=== PATIENT | female | born 1955 | race African-American/Black ===

== ENCOUNTER 2017-10-01 22:52 | Inpatient (IN) | payer MEDICARE, MEDICAID ==
[~2017-10-01] VITALS: Ht 188 cm; Wt 104.3 kg
[~2017-10-01 22:52] MED LIST: AMLODIPINE PO; ATENOLOL; FLUT1DIS3 IH; GABA-531 PO; HYDR-519 PO; MECL-109 PO; MESA1.2T2 PO; METF25CR; PROAIR HFA AER
[2017-10-02] MEDS ORDERED: MECLIZINE 25MG TABLET PO PRN (00:30)
[2017-10-02] MEDS ORDERED: PROMETHAZINE/DEXTROMETHORPHAN 6.25-15MG/5ML BOTTLE 120ML PO PRN (00:30)
[2017-10-02] MEDS ORDERED: ONDANSETRON HCL 4MG/2ML VIAL IV PRN (00:30)
[2017-10-02] MEDS ORDERED: CLONIDINE 0.1MG TABLET PO PRN (00:30)
[2017-10-02] MEDS ORDERED: IPRATROPIUM/ALBUTEROL 0.5-3(2.5)MG/3ML NEB HHN PRN (00:30)
[2017-10-02] MEDS ORDERED: HYDROCODONE/ACETAMINOPHEN 10/325MG TABLET PO PRN (00:30)
[2017-10-02] MEDS ORDERED: DEXTROSE 50% WATER 50ML SYRINGE IV PRN (00:30)
[2017-10-02] MEDS ORDERED: CLONIDINE 0.2MG TABLET PO PRN (00:30)
[2017-10-02 01:08] VITALS: BP 139/78
[2017-10-02] MEDS ORDERED: AZITHROMYCIN 500 MG in DEXT 5% WATER 250 ML IV SCH ×2 (02:00→17:00)
[2017-10-02] MEDS: IPRATROPIUM/ALBUTEROL 0.5-3(2.5)MG/3ML NEB HHN SCH ×5 (04:05→20:58)
[2017-10-02 06:31] LABS: BASOPHILS % 0.5 % (0.0-2.0); EOSINOPHILS % 0.1 % (0.0-5.0); LYMPHOCYTES % 23.6 % (20.0-50.0); MEAN CORPUSCULAR HEMOGLOBIN 26.8 pg (28.0-32.0); MEAN CORPUSCULAR VOLUME 82.9 fL (81.0-99.0); MONOCYTES % 8.6 % (2.0-8.0); NEUTROPHILS % 67.2 % (40.0-76.0); PLATELET 220 x1000/uL (130-400); RED BLOOD CELL COUNT 4.47 mill/uL (4.2-5.4); RED CELL DISTRIBUTION WIDTH 13.3 % (11.6-14.6)
[2017-10-02] MEDS: BLOOD SUGAR DIAGNOSTIC STRIP TEST SCH ×4 (06:58→21:55)
[2017-10-02] MEDS: OMEPRAZOLE 20MG CAPSULE EXTENDED RELEASE PO SCH (06:58)
[2017-10-02] MEDS: INSULIN LISPRO 100 UNITS/ML SUBCUT SCH ×4 (07:46→21:55)
[2017-10-02 08:00] VITALS: BP 150/83
[2017-10-02 08:36] LABS: CARBON DIOXIDE 28 mEq/L (21-32); CHLORIDE 103 mEq/L (98-107)
[2017-10-02] MEDS: ENOXAPARIN 40MG/0.4ML SYR SUBCUT SCH (09:00)
[2017-10-02] MEDS ORDERED: METHYLPREDNISOLONE SOD SUCC 40 MG/ML VIAL IV SCH (09:00)
[2017-10-02] MEDS: ASPIRIN 81MG TABLET PO SCH (09:52)
[2017-10-02] MEDS: ATENOLOL 50 MG TABLET PO SCH (09:53)
[2017-10-02] MEDS: GUAIFENESIN 600MG ER TABLET PO SCH ×2 (09:53→21:40)
[2017-10-02] MEDS: AMLODIPINE 5MG TABLET PO SCH (09:54)
[2017-10-02] MEDS: BUDESONIDE 0.5MG/2ML NEB HHN SCH ×2 (10:39→20:57)
[2017-10-02 10:43] LABS: PREALBUMIN 23.6 mg/dL (20.0-40.0)
[2017-10-02] MEDS: INSULIN DETEMIR UD 100 UNITS/ML SYR SUBCUT SCH (11:10)
[2017-10-02] MEDS: PREDNISONE 20MG TABLET PO SCH (12:22)
[2017-10-02] MEDS: AZITHROMYCIN 500 MG TABLET PO SCH (18:48)
[2017-10-02 20:00] VITALS: BP 123/72
[2017-10-02 20:26] LABS: CLARITY URINE CLEAR (CLEAR); COLOR URINE YELLOW (YELLOW); GLUCOSE URINE 3+ (NEGATIVE); KETONES URINE NEGATIVE (NEGATIVE); LEUKOCYTE ESTERASE URINE NEGATIVE (NEGATIVE); NITRITE URINE NEGATIVE (NEGATIVE); OCCULT BLOOD URINE NEGATIVE (NEGATIVE); PH URINE 5.5 (4.5-8.0); PROTEIN URINE NEGATIVE (NEGATIVE); SPECIFIC GRAVITY URINE 1.018 (1.005-1.030); UROBILINOGEN URINE 0.2 E.U./dL (0.2-1.0)
[2017-10-02] MEDS: GABAPENTIN 300MG CAPSULE PO SCH (21:40)
[2017-10-03] MEDS: IPRATROPIUM/ALBUTEROL 0.5-3(2.5)MG/3ML NEB HHN SCH ×6 (04:00→21:20)
[2017-10-03] MEDS: BLOOD SUGAR DIAGNOSTIC STRIP TEST SCH ×4 (07:03→21:19)
[2017-10-03] MEDS: OMEPRAZOLE 20MG CAPSULE EXTENDED RELEASE PO SCH (07:04)
[2017-10-03] MEDS: INSULIN LISPRO 100 UNITS/ML SUBCUT SCH ×4 (07:09→21:19)
[2017-10-03 08:00] VITALS: BP 148/86
[2017-10-03] MEDS: BUDESONIDE 0.5MG/2ML NEB HHN SCH ×2 (08:52→21:21)
[2017-10-03] MEDS: ENOXAPARIN 40MG/0.4ML SYR SUBCUT SCH (09:00)
[2017-10-03] MEDS: ATENOLOL 50 MG TABLET PO SCH (09:49)
[2017-10-03] MEDS: AZITHROMYCIN 500 MG TABLET PO SCH (09:49)
[2017-10-03] MEDS: ASPIRIN 81MG TABLET PO SCH (09:50)
[2017-10-03] MEDS: PREDNISONE 20MG TABLET PO SCH (09:50)
[2017-10-03] MEDS: AMLODIPINE 5MG TABLET PO SCH (09:50)
[2017-10-03] MEDS: GUAIFENESIN 600MG ER TABLET PO SCH ×2 (09:50→21:13)
[2017-10-03] MEDS: INSULIN DETEMIR UD 100 UNITS/ML SYR SUBCUT SCH (11:21)
[2017-10-03 20:00] VITALS: BP 150/83
[2017-10-03] MEDS: GABAPENTIN 300MG CAPSULE PO SCH (21:13)
[2017-10-04] MEDS: IPRATROPIUM/ALBUTEROL 0.5-3(2.5)MG/3ML NEB HHN SCH ×5 (04:17→20:07)
[2017-10-04] MEDS: BLOOD SUGAR DIAGNOSTIC STRIP TEST SCH ×4 (05:34→21:55)
[2017-10-04 06:53] LABS: BASOPHILS % 0.5 % (0.0-2.0); EOSINOPHILS % 0.4 % (0.0-5.0); HEMATOCRIT. 38.1 % (36.0-48.0); HEMOGLOBIN. 12.5 g/dL (12.0-16.0); LYMPHOCYTES % 23.5 % (20.0-50.0); MEAN CORPUSCULAR HEMOGLOBIN 27.3 pg (28.0-32.0); MEAN PLATELET VOLUME 10.6 fl (7.4-10.4); MONOCYTES % 7.9 % (2.0-8.0); NEUTROPHILS % 67.7 % (40.0-76.0); PLATELET 232 x1000/uL (130-400); RED BLOOD CELL COUNT 4.59 mill/uL (4.2-5.4); RED CELL DISTRIBUTION WIDTH 13.3 % (11.6-14.6)
[2017-10-04] MEDS: BUDESONIDE 0.5MG/2ML NEB HHN SCH ×2 (07:50→20:07)
[2017-10-04 08:00] VITALS: BP 164/86
[2017-10-04] MEDS: INSULIN LISPRO 100 UNITS/ML SUBCUT SCH ×4 (09:00→21:55)
[2017-10-04] MEDS: ENOXAPARIN 40MG/0.4ML SYR SUBCUT SCH ×2 (09:00→09:09)
[2017-10-04] MEDS: GUAIFENESIN 600MG ER TABLET PO SCH ×2 (09:05→21:48)
[2017-10-04] MEDS: AZITHROMYCIN 500 MG TABLET PO SCH (09:05)
[2017-10-04] MEDS: AMLODIPINE 5MG TABLET PO SCH (09:06)
[2017-10-04] MEDS: PREDNISONE 20MG TABLET PO SCH (09:07)
[2017-10-04] MEDS: ASPIRIN 81MG TABLET PO SCH (09:07)
[2017-10-04] MEDS: FAMOTIDINE 20MG TABLET PO SCH ×2 (09:08→17:30)
[2017-10-04] MEDS: INSULIN DETEMIR UD 100 UNITS/ML SYR SUBCUT SCH (09:16)
[2017-10-04] MEDS: ATENOLOL 50 MG TABLET PO SCH (09:22)
[2017-10-04] MEDS ORDERED: GUAIFENESIN/CODEINE 100-10MG/5ML UDC PO PRN (11:15)
[2017-10-04] MEDS ORDERED: GUAIFENESIN/CODEINE 200-20MG/10ML UDC PO PRN (11:31)
[2017-10-04] MEDS: LEVOFLOXACIN 250MG TABLET PO SCH (11:52)
[2017-10-04 12:38] LABS: CARBON DIOXIDE 27 mEq/L (21-32); CHLORIDE 104 mEq/L (98-107); HDL CHOLESTEROL 74 mg/dL (40-59); LDL CHOLESTEROL 71 mg/dL (5-100); PHOSPHORUS 3.5 mg/dL (2.5-4.9); TOTAL IRON BINDING CAPACITY 325 ug/dL (250-450)
[2017-10-04 18:35] LABS: FOLIC ACID (FOLATE) SERUM 13.4 ng/mL (>5.38)
[2017-10-04 20:00] VITALS: BP 130/78
[2017-10-04] MEDS: GABAPENTIN 300MG CAPSULE PO SCH (21:48)
[2017-10-05] MEDS: IPRATROPIUM/ALBUTEROL 0.5-3(2.5)MG/3ML NEB HHN SCH ×6 (00:25→20:43)
[2017-10-05] MEDS: LORAZEPAM 0.5MG TABLET PO PRN ×2 (00:46→20:58)
[2017-10-05] MEDS: BLOOD SUGAR DIAGNOSTIC STRIP TEST SCH ×4 (06:00→21:48)
[2017-10-05 06:57] LABS: BASOPHILS % 0.4 % (0.0-2.0); EOSINOPHILS % 0.2 % (0.0-5.0); HEMATOCRIT. 38.9 % (36.0-48.0); HEMOGLOBIN. 12.4 g/dL (12.0-16.0); LYMPHOCYTES % 21.5 % (20.0-50.0); MEAN CORPUSCULAR HEMOGLOBIN 26.6 pg (28.0-32.0); MEAN CORPUSCULAR VOLUME 83.1 fL (81.0-99.0); MEAN PLATELET VOLUME 10.3 fl (7.4-10.4); MONOCYTES % 8.4 % (2.0-8.0); NEUTROPHILS % 69.5 % (40.0-76.0); PLATELET 255 x1000/uL (130-400); RED BLOOD CELL COUNT 4.68 mill/uL (4.2-5.4); RED CELL DISTRIBUTION WIDTH 13.3 % (11.6-14.6)
[2017-10-05 08:00] VITALS: BP 142/79
[2017-10-05 08:11] LABS: CARBON DIOXIDE 27 mEq/L (21-32); CHLORIDE 104 mEq/L (98-107); T4 FREE 0.83 ng/dL (0.76-1.46)
[2017-10-05] MEDS: ASPIRIN 81MG TABLET PO SCH (08:31)
[2017-10-05] MEDS: FAMOTIDINE 20MG TABLET PO SCH ×2 (08:31→17:28)
[2017-10-05] MEDS: GUAIFENESIN 600MG ER TABLET PO SCH ×2 (08:31→21:47)
[2017-10-05] MEDS: AMLODIPINE 5MG TABLET PO SCH ×2 (08:33→21:48)
[2017-10-05] MEDS: ATENOLOL 50 MG TABLET PO SCH (08:33)
[2017-10-05] MEDS: ENOXAPARIN 40MG/0.4ML SYR SUBCUT SCH (08:39)
[2017-10-05] MEDS: INSULIN LISPRO 100 UNITS/ML SUBCUT SCH ×4 (08:39→21:57)
[2017-10-05] MEDS ORDERED: PREDNISONE 5MG TABLET PO SCH (09:00)
[2017-10-05] MEDS: INSULIN DETEMIR UD 100 UNITS/ML SYR SUBCUT SCH (10:26)
[2017-10-05 20:00] VITALS: BP 142/79
[2017-10-05] MEDS: GABAPENTIN 300MG CAPSULE PO SCH (21:47)
[2017-10-06] MEDS: IPRATROPIUM/ALBUTEROL 0.5-3(2.5)MG/3ML NEB HHN SCH ×6 (00:38→21:04)
[2017-10-06] MEDS: BLOOD SUGAR DIAGNOSTIC STRIP TEST SCH ×4 (06:30→20:43)
[2017-10-06] MEDS: INSULIN LISPRO 100 UNITS/ML SUBCUT SCH ×4 (07:37→20:51)
[2017-10-06 07:57] VITALS: BP 132/80
[2017-10-06] MEDS: LEVOFLOXACIN 250MG TABLET PO SCH (08:56)
[2017-10-06] MEDS: ASPIRIN 81MG TABLET PO SCH (08:56)
[2017-10-06] MEDS: FAMOTIDINE 20MG TABLET PO SCH ×2 (08:56→17:27)
[2017-10-06] MEDS: GUAIFENESIN 600MG ER TABLET PO SCH ×2 (08:56→20:35)
[2017-10-06] MEDS: ATENOLOL 50 MG TABLET PO SCH (08:57)
[2017-10-06] MEDS: ENOXAPARIN 40MG/0.4ML SYR SUBCUT SCH (08:57)
[2017-10-06] MEDS: AMLODIPINE 5MG TABLET PO SCH ×2 (08:58→20:36)
[2017-10-06] MEDS: INSULIN DETEMIR UD 100 UNITS/ML SYR SUBCUT SCH (11:23)
[2017-10-06] MEDS ORDERED: LORAZEPAM 0.5MG TABLET PO PRN (13:15)
[2017-10-06] MEDS ORDERED: HYDROCODONE/ACETAMINOPHEN 10/325MG TABLET PO PRN (16:30)
[2017-10-06 20:00] VITALS: BP 114/65
[2017-10-06] MEDS: GUAIFENESIN/CODEINE 200-20MG/10ML UDC PO PRN (20:35)
[2017-10-06] MEDS: GABAPENTIN 300MG CAPSULE PO SCH (20:35)
[2017-10-07] MEDS: IPRATROPIUM/ALBUTEROL 0.5-3(2.5)MG/3ML NEB HHN SCH ×3 (01:02→07:55)
[2017-10-07] MEDS: BLOOD SUGAR DIAGNOSTIC STRIP TEST SCH ×2 (06:30→11:15)
[2017-10-07 07:00] VITALS: BP 143/83
[2017-10-07 07:11] LABS: BASOPHILS % 0.5 % (0.0-2.0); EOSINOPHILS % 1.1 % (0.0-5.0); HEMATOCRIT. 38.1 % (36.0-48.0); HEMOGLOBIN. 12.2 g/dL (12.0-16.0); LYMPHOCYTES % 33.8 % (20.0-50.0); MEAN CORPUSCULAR HEMOGLOBIN 26.6 pg (28.0-32.0); MEAN CORPUSCULAR VOLUME 83.3 fL (81.0-99.0); MEAN PLATELET VOLUME 10.2 fl (7.4-10.4); MONOCYTES % 8.2 % (2.0-8.0); NEUTROPHILS % 56.4 % (40.0-76.0); PLATELET 238 x1000/uL (130-400); RED BLOOD CELL COUNT 4.57 mill/uL (4.2-5.4); RED CELL DISTRIBUTION WIDTH 13.4 % (11.6-14.6)
[2017-10-07 08:14] LABS: CARBON DIOXIDE 28 mEq/L (21-32); CHLORIDE 105 mEq/L (98-107)
[2017-10-07] MEDS: GUAIFENESIN 600MG ER TABLET PO SCH (08:29)
[2017-10-07] MEDS: ASPIRIN 81MG TABLET PO SCH (08:29)
[2017-10-07] MEDS: FAMOTIDINE 20MG TABLET PO SCH (08:29)
[2017-10-07] MEDS: ATENOLOL 50 MG TABLET PO SCH (08:30)
[2017-10-07] MEDS: AMLODIPINE 5MG TABLET PO SCH (08:30)
[2017-10-07] MEDS: ENOXAPARIN 40MG/0.4ML SYR SUBCUT SCH (08:31)
[2017-10-07] MEDS: INSULIN LISPRO 100 UNITS/ML SUBCUT SCH ×2 (08:32→13:00)
[2017-10-07] MEDS: GUAIFENESIN/CODEINE 200-20MG/10ML UDC PO PRN (08:53)
[2017-10-07] MEDS: INSULIN DETEMIR UD 100 UNITS/ML SYR SUBCUT SCH (10:00)
[2017-10-07 11:37] VITALS: BP 136/82
[2017-10-08 13:27] LABS: 25-HYDROXY VITAMIN D3 24 ng/mL (.)
== END 2017-10-07 14:10 | disposition home health service (06) | DRG 190 ==
LOC: EDUNIT# 22:52
PROVIDERS: ADMIT Physical Medicine & Rehabilitation Spinal Cord Injury Medicine; ATTEND Family Medicine Adult Medicine
DX: J44.1 Chronic obstructive pulmonary disease with (acute) exacerbation (principal); J96.00 Acute respiratory failure, unspecified whether with hypoxia or hypercapnia; J45.901 Unspecified asthma with (acute) exacerbation; F33.1 Major depressive disorder, recurrent, moderate; E87.2 Acidosis; M48.02 Spinal stenosis, cervical region; E11.9 Type 2 diabetes mellitus without complications; D64.9 Anemia, unspecified; E78.5 Hyperlipidemia, unspecified; G89.4 Chronic pain syndrome; J44.0 Chronic obstructive pulmonary disease with (acute) lower respiratory infection; M48.061 Spinal stenosis, lumbar region without neurogenic claudication; R00.0 Tachycardia, unspecified; I10 Essential (primary) hypertension; R26.9 Unspecified abnormalities of gait and mobility; J20.9 Acute bronchitis, unspecified; R07.89 Other chest pain; R53.81 Other malaise; B95.1 Streptococcus, group B, as the cause of diseases classified elsewhere; T38.0X5A Adverse effect of glucocorticoids and synthetic analogues, initial encounter; D72.829 Elevated white blood cell count, unspecified; Z82.49 Family history of ischemic heart disease and other diseases of the circulatory system; Z86.19 Personal history of other infectious and parasitic diseases; Y92.89 Other specified places as the place of occurrence of the external cause
CPT/HCPCS: 36415; 80048; 80053; 80061; 81001; 82306; 82607; 82728; 82746; 82962; 83036; 83540; 83550; 83735; 84100; 84134; 84439; 84443; 84481; 84630; 85025; 87086; 93970; 94640; 97110; 97112; 97116; 97162; 97166; 97530; 97535; J0456; J1650; J1815; J7060; J7512; J7620; J7626

== ENCOUNTER 2017-12-26 23:15 | Emergency (ER) | payer MEDICARE, MEDICAID ==
[~2017-12-26] VITALS: Ht 188 cm; Wt 107.0 kg
[~2017-12-26 23:15] MED LIST changes: -METF25CR; -PROAIR HFA AER
[2017-12-27] MEDS ORDERED: MORPHINE SULFATE 4 MG/ML CPJ (NOT FOR IM USE) IV ONE (00:15)
[2017-12-27] MEDS ORDERED: ONDANSETRON HCL 4MG/2ML VIAL IV ONE (00:15)
[2017-12-27 00:31] LABS: BASOPHILS % 1.3 % (0.0-2.0); EOSINOPHILS % 1.6 % (0.0-5.0); HEMATOCRIT. 37.7 % (36.0-48.0); LYMPHOCYTES % 40.7 % (20.0-50.0); MEAN CORPUSCULAR HEMOGLOBIN 26.2 pg (28.0-32.0); MEAN CORPUSCULAR VOLUME 82.1 fL (81.0-99.0); MEAN PLATELET VOLUME 10.2 fl (7.4-10.4); MONOCYTES % 11.4 % (2.0-8.0); PLATELET 241 x1000/uL (130-400)
[2017-12-27] MEDS ORDERED: HYDROCODONE/ACETAMINOPHEN 10/325MG TABLET PO ONE (00:45)
[2017-12-27 00:46] LABS: CHLORIDE 107 mEq/L (98-107); TROPONIN I < 0.02 ng/mL (0.00-0.04)
[2017-12-27 02:00] VITALS: BP 143/78
== END 2017-12-27 02:30 | disposition home or self-care (01) ==
LOC: ER 23:15
DX: J20.9 Acute bronchitis, unspecified (principal); R07.9 Chest pain, unspecified; J44.9 Chronic obstructive pulmonary disease, unspecified; E11.9 Type 2 diabetes mellitus without complications; I10 Essential (primary) hypertension; Z88.0 Allergy status to penicillin; Z87.11 Personal history of peptic ulcer disease
CPT/HCPCS: 36415; 71045; 80053; 83880; 84484; 85025; 85379; 93005; 99285

== ENCOUNTER 2018-07-04 23:44 | Inpatient (IN) | payer MEDICARE, MEDICAID ==
[~2018-07-04] VITALS: Ht 188 cm; Wt 104.3 kg
[~2018-07-04 23:44] MED LIST changes: -AMLODIPINE PO
[2018-07-05] VITALS (8 sets, daily range): BP systolic 142–184; BP diastolic 68–92
[2018-07-05] MEDS ORDERED: IPRATROPIUM BROMIDE (0.02%) 0.5MG/2.5ML NEB HHN STA (00:42)
[2018-07-05] MEDS ORDERED: METHYLPREDNISOLONE SOD SUCC 125 MG/2 ML VIAL IV STA (00:42)
[2018-07-05] MEDS ORDERED: ASPIRIN 81MG TABLET PO ONE (00:45)
[2018-07-05] MEDS ORDERED: ASPIRIN 81MG EC TABLET PO ONE (00:45)
[2018-07-05] MEDS: ALBUTEROL (0.083%) 2.5MG/3ML NEB HHN SCH ×2 (01:00→02:15)
[2018-07-05] MEDS ORDERED: IPRATROPIUM/ALBUTEROL 0.5-3(2.5)MG/3ML NEB ONE (01:02)
[2018-07-05 01:03] LABS: BASOPHILS % 0.2 % (0.0-2.0); EOSINOPHILS % 0.9 % (0.0-5.0); HEMATOCRIT. 38.1 % (36.0-48.0); HEMOGLOBIN. 12.2 g/dL (12.0-16.0); MEAN CORPUSCULAR HEMOGLOBIN 26.7 pg (28.0-32.0); MEAN CORPUSCULAR VOLUME 83.2 fL (81.0-99.0); MEAN PLATELET VOLUME 10.3 fl (7.4-10.4); MONOCYTES % 10.9 % (2.0-8.0); PLATELET 223 x1000/uL (130-400); RED BLOOD CELL COUNT 4.58 mill/uL (4.2-5.4); RED CELL DISTRIBUTION WIDTH 13.3 % (11.6-14.6)
[2018-07-05 01:10] LABS: CHLORIDE 107 mEq/L (98-107)
[2018-07-05 01:13] LABS: PARTIAL THROMBOPLASTIN TIME 26.8 sec (23.4-31.0); PROTHROMBIN TIME 10.5 sec (9.1-11.1)
[2018-07-05] MEDS ORDERED: LACTATED RINGERS 1,000 ML IV SCH (04:00)
[2018-07-05] MEDS ORDERED: CLONIDINE 0.1MG TABLET PO PRN (04:00)
[2018-07-05] MEDS ORDERED: HYDROCODONE/ACETAMINOPHEN 5/325MG TABLET PO PRN (04:00)
[2018-07-05] MEDS ORDERED: LORAZEPAM 0.5MG TABLET PO PRN (04:00)
[2018-07-05] MEDS ORDERED: ACETAMINOPHEN 325MG TABLET PO PRN (04:00)
[2018-07-05] MEDS ORDERED: MAGNESIUM/ALUMINUM HYDROXIDE/SIMETHICONE 30ML UDC PO PRN (04:00)
[2018-07-05] MEDS ORDERED: DIPHENHYDRAMINE 50MG/ML VIAL IV PRN (04:00)
[2018-07-05] MEDS ORDERED: GUAIFENESIN 200MG/10ML SUGAR FREE UDC PO PRN (04:00)
[2018-07-05] MEDS ORDERED: IPRATROPIUM/ALBUTEROL 0.5-3(2.5)MG/3ML NEB INH PRN (04:00)
[2018-07-05] MEDS ORDERED: DOCUSATE SODIUM 100MG CAPSULE PO PRN (04:00)
[2018-07-05] MEDS ORDERED: ONDANSETRON HCL 4MG/2ML VIAL IV PRN (04:00)
[2018-07-05] MEDS ORDERED: HYDROCODONE/APAP 7.5/325MG 1 TAB TABLET PO PRN (04:00)
[2018-07-05 04:58] LABS: CLARITY URINE CLEAR (CLEAR); COLOR URINE YELLOW (YELLOW); KETONES URINE TRACE (NEGATIVE); LEUKOCYTE ESTERASE URINE NEGATIVE (NEGATIVE); NITRITE URINE NEGATIVE (NEGATIVE); OCCULT BLOOD URINE NEGATIVE (NEGATIVE); PH URINE 5.5 (4.5-8.0); PROTEIN URINE NEGATIVE (NEGATIVE); SPECIFIC GRAVITY URINE 1.015 (1.005-1.030); UROBILINOGEN URINE 0.2 E.U./dL (0.2-1.0)
[2018-07-05 05:18] LABS: *AMPHETAMINES SCREEN URINE NEGATIVE (NEGATIVE); *BARBITURATES SCREEN URINE NEGATIVE (NEGATIVE); *BENZODIAZEPINES SCREEN URINE NEGATIVE (NEGATIVE); *COCAINE SCREEN URINE NEGATIVE (NEGATIVE); METHADONE URINE SCREEN NEGATIVE (NEGATIVE); OPIATES URINE SCREEN NEGATIVE (NEGATIVE)
[2018-07-05 05:19] LABS: CANNABINOID URINE SCREEN NEGATIVE (NEGATIVE); PHENCYCLIDINE URINE SCREEN NEGATIVE (NEGATIVE)
[2018-07-05 06:43] LABS: HEMATOCRIT. 41.5 % (36.0-48.0); HEMOGLOBIN. 13.3 g/dL (12.0-16.0); MEAN CORPUSCULAR HEMOGLOBIN 26.9 pg (28.0-32.0); MEAN PLATELET VOLUME 10.6 fl (7.4-10.4); PLATELET 232 x1000/uL (130-400); RED BLOOD CELL COUNT 4.95 mill/uL (4.2-5.4); RED CELL DISTRIBUTION WIDTH 13.3 % (11.6-14.6)
[2018-07-05 06:45] LABS: CHLORIDE 106 mEq/L (98-107)
[2018-07-05 06:51] LABS: PHOSPHORUS 2.2 mg/dL (2.5-4.9)
[2018-07-05 06:52] LABS: LDL CHOLESTEROL 85 mg/dL (5-100)
[2018-07-05 06:53] LABS: HDL CHOLESTEROL 56 mg/dL (40-59)
[2018-07-05] MEDS ORDERED: DEXTROSE 50% WATER 50ML SYRINGE IV PRN (08:45)
[2018-07-05] MEDS: BLOOD SUGAR DIAGNOSTIC STRIP TEST SCH ×4 (08:52→20:41)
[2018-07-05] MEDS: ENOXAPARIN 40MG/0.4ML SYR SUBCUT SCH ×2 (09:00→10:03)
[2018-07-05 09:41] LABS: PLATELET ESTIMATE NORMAL
[2018-07-05] MEDS ORDERED: METF500T6 PO (10:26)
[2018-07-05] MEDS ORDERED: AMLO10TA80 PO (10:26)
[2018-07-05] MEDS: INSULIN LISPRO 100 UNITS/ML SUBCUT SCH ×4 (10:38→20:40)
[2018-07-05] MEDS ORDERED: INSULIN LISPRO 100 UNITS/ML SUBCUT SCH (13:10)
[2018-07-05] MEDS ORDERED: TRAMADOL 50MG TABLET PO PRN (14:00)
[2018-07-05] MEDS: AMLODIPINE 5MG TABLET PO SCH ×2 (14:01→20:31)
[2018-07-05] MEDS: MECLIZINE 25MG TABLET PO PRN (16:12)
[2018-07-05] MEDS ORDERED: VENLAFAXINE HCL 37.5MG TABLET PO SCH (16:30)
[2018-07-05] MEDS: IPRATROPIUM/ALBUTEROL 0.5-3(2.5)MG/3ML NEB HHN SCH ×2 (17:19→19:53)
[2018-07-05] MEDS: BUDESONIDE 0.5MG/2ML NEB HHN SCH ×2 (17:19→19:53)
[2018-07-05] MEDS: VENLAFAXINE HCL 37.5MG SR CAPSULE 24HR PO SCH (18:47)
[2018-07-05] MEDS: ATENOLOL 50 MG TABLET PO SCH (20:33)
[2018-07-06] VITALS (7 sets, daily range): BP systolic 115–177; BP diastolic 62–80
[2018-07-06] MEDS: IPRATROPIUM/ALBUTEROL 0.5-3(2.5)MG/3ML NEB HHN SCH ×4 (01:45→20:13)
[2018-07-06] MEDS: OMEPRAZOLE 20MG CAPSULE EXTENDED RELEASE PO SCH (05:38)
[2018-07-06] MEDS: BLOOD SUGAR DIAGNOSTIC STRIP TEST SCH ×4 (05:38→21:31)
[2018-07-06] MEDS: INSULIN LISPRO 100 UNITS/ML SUBCUT SCH ×4 (05:39→21:46)
[2018-07-06] MEDS: ENOXAPARIN 40MG/0.4ML SYR SUBCUT SCH (09:00)
[2018-07-06] MEDS: AMLODIPINE 5MG TABLET PO SCH (09:01)
[2018-07-06] MEDS: ATENOLOL 50 MG TABLET PO SCH (09:01)
[2018-07-06] MEDS: VENLAFAXINE HCL 37.5MG SR CAPSULE 24HR PO SCH (09:02)
[2018-07-06] MEDS ORDERED: BENZONATATE 100MG CAPSULE PO PRN (09:30)
[2018-07-06] MEDS: BUDESONIDE 0.5MG/2ML NEB HHN SCH ×2 (09:33→20:14)
[2018-07-06 09:53] LABS: BASOPHILS % 0.4 % (0.0-2.0); HEMATOCRIT. 38.6 % (36.0-48.0); HEMOGLOBIN. 12.4 g/dL (12.0-16.0); LYMPHOCYTES % 17.6 % (20.0-50.0); MEAN CORPUSCULAR HEMOGLOBIN 26.7 pg (28.0-32.0); MEAN CORPUSCULAR VOLUME 83.6 fL (81.0-99.0); MEAN PLATELET VOLUME 11.2 fl (7.4-10.4); MONOCYTES % 6.6 % (2.0-8.0); NEUTROPHILS % 75.4 % (40.0-76.0); PLATELET 238 x1000/uL (130-400); RED BLOOD CELL COUNT 4.62 mill/uL (4.2-5.4); RED CELL DISTRIBUTION WIDTH 13.4 % (11.6-14.6)
[2018-07-06] MEDS ORDERED: LEVOFLOXACIN 500MG PREMIX 100 ML IV SCH (10:00)
[2018-07-06 10:05] LABS: CHLORIDE 106 mEq/L (98-107)
[2018-07-06] MEDS: MECLIZINE 25MG TABLET PO PRN (11:25)
[2018-07-06] MEDS: NIFEDIPINE XL 60MG TAB PO SCH ×2 (12:57→18:21)
[2018-07-06] MEDS: GUAIFENESIN 600MG ER TABLET PO SCH (21:35)
[2018-07-06] MEDS: ATENOLOL 25MG TABLET PO SCH (21:35)
[2018-07-06] MEDS: ENOXAPARIN 30MG/0.3ML SYR SUBCUT SCH (21:36)
[2018-07-07] MEDS: IPRATROPIUM/ALBUTEROL 0.5-3(2.5)MG/3ML NEB HHN SCH ×3 (01:24→15:00)
[2018-07-07 02:00] VITALS: BP 140/75
[2018-07-07 04:00] VITALS: BP 145/70
[2018-07-07] MEDS: BLOOD SUGAR DIAGNOSTIC STRIP TEST SCH ×2 (07:40→12:07)
[2018-07-07 07:42] LABS: BASOPHILS % 0.5 % (0.0-2.0); EOSINOPHILS % 0.4 % (0.0-5.0); HEMOGLOBIN. 12.5 g/dL (12.0-16.0); MEAN CORPUSCULAR HEMOGLOBIN 26.9 pg (28.0-32.0); MEAN CORPUSCULAR VOLUME 84.5 fL (81.0-99.0); MEAN PLATELET VOLUME 10.8 fl (7.4-10.4); MONOCYTES % 7.8 % (2.0-8.0); NEUTROPHILS % 54.3 % (40.0-76.0); PLATELET 233 x1000/uL (130-400); RED BLOOD CELL COUNT 4.62 mill/uL (4.2-5.4); RED CELL DISTRIBUTION WIDTH 13.5 % (11.6-14.6)
[2018-07-07 08:00] VITALS: BP_SYST 110; BP_SYST 117; BP_SYST 131; BP_DIAS 63; BP_DIAS 68; BP_DIAS 71
[2018-07-07] MEDS: INSULIN LISPRO 100 UNITS/ML SUBCUT SCH ×2 (08:10→13:10)
[2018-07-07] MEDS: BUDESONIDE 0.5MG/2ML NEB HHN SCH (08:10)
[2018-07-07 08:13] LABS: CHLORIDE 107 mEq/L (98-107)
[2018-07-07] MEDS: OMEPRAZOLE 20MG CAPSULE EXTENDED RELEASE PO SCH (08:52)
[2018-07-07] MEDS: GUAIFENESIN 600MG ER TABLET PO SCH (08:52)
[2018-07-07] MEDS: VENLAFAXINE HCL 37.5MG SR CAPSULE 24HR PO SCH (08:52)
[2018-07-07] MEDS: NIFEDIPINE XL 60MG TAB PO SCH (08:53)
[2018-07-07] MEDS: ATENOLOL 25MG TABLET PO SCH (08:54)
[2018-07-07] MEDS: ENOXAPARIN 30MG/0.3ML SYR SUBCUT SCH (08:55)
[2018-07-07] MEDS ORDERED: LEVOFLOXACIN 750MG PREMIX 150 ML IV SCH (09:00)
[2018-07-07] MEDS ORDERED: LOSARTAN POTASSIUM 25 MG TABLET PO SCH (09:00)
[2018-07-07 12:00] VITALS: BP 105/66
[2018-07-07 16:23] VITALS: BP 117/69
[2018-07-07 16:28] VITALS: BP 117/69
[2018-07-08] MEDS ORDERED: FAMOTIDINE 20MG TABLET PO SCH (09:00)
== END 2018-07-07 18:55 | disposition home or self-care (01) | DRG 73 ==
LOC: ER 23:44 → SUPCPDRO 07-05 03:37 → 7WST 07-05 03:53 → EDBEDREQ 07-05 04:15 → EDBEDREQTM 07-05 04:15 → ENRESERV 07-05 06:53
PROVIDERS: ADMIT Family Medicine Adult Medicine; ATTEND Family Medicine Adult Medicine
DX: G90.8 Other disorders of autonomic nervous system (principal); J96.01 Acute respiratory failure with hypoxia; J44.1 Chronic obstructive pulmonary disease with (acute) exacerbation; K51.90 Ulcerative colitis, unspecified, without complications; J44.0 Chronic obstructive pulmonary disease with (acute) lower respiratory infection; I10 Essential (primary) hypertension; M48.061 Spinal stenosis, lumbar region without neurogenic claudication; G89.4 Chronic pain syndrome; E11.40 Type 2 diabetes mellitus with diabetic neuropathy, unspecified; E78.5 Hyperlipidemia, unspecified; I25.2 Old myocardial infarction; F32.9 Major depressive disorder, single episode, unspecified; F41.9 Anxiety disorder, unspecified; J20.9 Acute bronchitis, unspecified; T38.0X5A Adverse effect of glucocorticoids and synthetic analogues, initial encounter; Y92.89 Other specified places as the place of occurrence of the external cause; Z79.899 Other long term (current) drug therapy; Z88.0 Allergy status to penicillin; Z88.8 Allergy status to other drugs, medicaments and biological substances; Z82.49 Family history of ischemic heart disease and other diseases of the circulatory system
CPT/HCPCS: 36415; 70450; 71045; 80048; 80053; 80061; 80305; 81003; 82962; 83036; 83735; 83880; 84100; 84145; 84443; 84484; 85025; 85610; 85730; 93005; 93970; 94640; 96361; 96374; 97162; 97166; 99285; J1650; J1815; J1956; J2930; J7050; J7120; J7611; J7620; J7626; J8597

== ENCOUNTER 2018-10-21 02:55 | Emergency (ER) | payer MEDICARE, MEDICAID ==
[~2018-10-21] VITALS: Ht 188 cm; Wt 106.0 kg
[~2018-10-21 02:55] MED LIST changes: +AMLO10TA80 PO; -MESA1.2T2 PO; +METF-414 PO
[2018-10-21] MEDS ORDERED: IPRATROPIUM BROMIDE (0.02%) 0.5MG/2.5ML NEB HHN STA (04:00)
[2018-10-21] MEDS ORDERED: ALBUTEROL (0.083%) 2.5MG/3ML NEB HHN STA (04:00)
[2018-10-21] MEDS ORDERED: PREDNISONE 20MG TABLET PO STA (04:00)
[2018-10-21] MEDS ORDERED: HYDROCODONE/ACETAMINOPHEN 10/325MG TABLET PO ONE (04:00)
[2018-10-21 06:06] VITALS: BP 149/85
== END 2018-10-21 06:08 | disposition home or self-care (01) ==
LOC: ER 02:55
DX: J44.9 Chronic obstructive pulmonary disease, unspecified (principal); M54.9 Dorsalgia, unspecified; I10 Essential (primary) hypertension; E11.9 Type 2 diabetes mellitus without complications; Z88.0 Allergy status to penicillin; Z79.899 Other long term (current) drug therapy
CPT/HCPCS: 94640; 99283; J7512; J7611

== ENCOUNTER 2018-12-25 21:07 | Emergency (ER) | payer MEDICARE, MEDICAID ==
[~2018-12-25] VITALS: Ht 188 cm; Wt 105.0 kg
[2018-12-26] MEDS ORDERED: ONDANSETRON HCL 4MG/2ML INJ IV STA (01:36)
[2018-12-26 02:48] LABS: BASOPHILS % 1.3 % (0.0-2.0); EOSINOPHILS % 1.2 % (0.0-5.0); HEMATOCRIT. 40.2 % (36.0-48.0); HEMOGLOBIN. 12.8 g/dL (12.0-16.0); MEAN CORPUSCULAR HEMOGLOBIN 26.4 pg (28.0-32.0); MEAN CORPUSCULAR VOLUME 83.1 fL (81.0-99.0); MEAN PLATELET VOLUME 10.5 fl (7.4-10.4); MONOCYTES % 9.4 % (2.0-8.0); NEUTROPHILS % 57.1 % (40.0-76.0); PLATELET 212 x1000/uL (130-400); RED BLOOD CELL COUNT 4.84 mill/uL (4.2-5.4); RED CELL DISTRIBUTION WIDTH 13.7 % (11.6-14.6)
[2018-12-26] MEDS ORDERED: ONDANSETRON 4MG ODT PO ONE (03:00)
[2018-12-26 03:06] LABS: CHLORIDE 108 mEq/L (98-107)
[2018-12-26 05:52] VITALS: BP 123/72
== END 2018-12-26 05:54 | disposition home or self-care (01) ==
LOC: ER 21:07
DX: I10 Essential (primary) hypertension (principal); E11.65 Type 2 diabetes mellitus with hyperglycemia; E78.00 Pure hypercholesterolemia, unspecified; J45.909 Unspecified asthma, uncomplicated; J44.9 Chronic obstructive pulmonary disease, unspecified; Z88.0 Allergy status to penicillin; Z79.84 Long term (current) use of oral hypoglycemic drugs; Z87.19 Personal history of other diseases of the digestive system; Z88.8 Allergy status to other drugs, medicaments and biological substances
CPT/HCPCS: 36415; 71045; 80053; 82962; 83880; 84484; 85025; 99284; Q0162; J2405

== ENCOUNTER 2019-05-05 23:24 | Inpatient (IN) | payer MEDICARE, MEDICAID ==
[~2019-05-05] VITALS: Ht 188 cm; Wt 108.9 kg
[2019-05-05] MEDS ORDERED: METHYLPREDNISOLONE SOD SUCC 125 MG/2 ML VIAL IV STA (23:57)
[2019-05-05] MEDS ORDERED: ONDANSETRON HCL 4MG/2ML INJ IV STA (23:57)
[2019-05-05] MEDS ORDERED: KETOROLAC 30MG/ML VIAL IV STA (23:57)
[2019-05-05] MEDS ORDERED: MORPHINE SULFATE 4 MG/ML CPJ (NOT FOR IM USE) IV STA (23:57)
[2019-05-06] MEDS ORDERED: LEVOFLOXACIN 750MG PREMIX 150 ML IV ONE
[2019-05-06] MEDS ORDERED: IPRATROPIUM/ALBUTEROL 0.5-3(2.5)MG/3ML NEB HHN ONE
[2019-05-06 00:49] LABS: CHLORIDE 108 mEq/L (98-107)
[2019-05-06 00:50] LABS: PARTIAL THROMBOPLASTIN TIME 28.5 sec (23.4-31.0); PROTHROMBIN TIME 10.1 sec (9.6-11.0)
[2019-05-06 00:56] LABS: ETHANOL BLOOD < 10 mg/dL
[2019-05-06 01:16] LABS: BASOPHILS % 1.1 % (0.0-2.0); EOSINOPHILS % 0.8 % (0.0-5.0); HEMATOCRIT. 39.6 % (36.0-48.0); HEMOGLOBIN. 12.5 g/dL (12.0-16.0); LYMPHOCYTES % 20.9 % (20.0-50.0); MEAN CORPUSCULAR HEMOGLOBIN 26.5 pg (28.0-32.0); MEAN CORPUSCULAR VOLUME 83.7 fL (81.0-99.0); MEAN PLATELET VOLUME 10.7 fl (7.4-10.4); MONOCYTES % 7.3 % (2.0-8.0); NEUTROPHILS % 69.9 % (40.0-76.0); PLATELET 227 x1000/uL (130-400); RED BLOOD CELL COUNT 4.73 mill/uL (4.2-5.4); RED CELL DISTRIBUTION WIDTH 13.7 % (11.6-14.6)
[2019-05-06 01:21] LABS: BG BASE EXCESS -0.7 mmol/L (-2.0-2.0); BG CARBOXYHEMOGLOBIN 0.4 % (0.5-1.5); BG DEOXYHEMOGLOBIN 3.2 % (0.0-5.0); BG FRACTION INSPIRED OXYGEN 21; BG HCO3 ACT 23.7 mmol/L (22.0-26.0); BG METHEMOGLOBIN 0.2 % (0.0-1.5); BG OXYGEN SATURATION 96.8 % (92.0-98.5); BG OXYHEMOGLOBIN 96.2 % (94.0-97.0); BG PCO2 38.3 mmHg (35.0-45.0); BG PO2 85.8 mmHg (75.0-100.0); BG SAMPLE SITE RIGHT RADIAL; BG TOTAL HEMOGLOBIN 13.2 g/dL (12.0-18.0); BG VENT MODE ROOM AIR
[2019-05-06] MEDS ORDERED: KETOROLAC 30MG/ML VIAL IV ONE (02:30)
[2019-05-06] MEDS ORDERED: KETOROLAC 15MG/ML VIAL IV NR (02:45)
[2019-05-06 03:22] VITALS: BP 131/75
[2019-05-06 03:24] VITALS: BP 131/75
[2019-05-06] MEDS ORDERED: LEVOFLOXACIN 750MG PREMIX 150 ML IV SCH (04:30)
[2019-05-06] MEDS ORDERED: DEXTROSE 50% WATER 50ML SYRINGE IV PRN (04:30)
[2019-05-06] MEDS ORDERED: MECLIZINE 25MG TABLET PO PRN (04:45)
[2019-05-06] MEDS: HYDROCODONE/ACETAMINOPHEN 10/325MG TABLET PO PRN ×2 (05:35→14:39)
[2019-05-06] MEDS: IPRATROPIUM/ALBUTEROL 0.5-3(2.5)MG/3ML NEB HHN PRN ×2 (05:55→09:56)
[2019-05-06 07:59] VITALS: BP 127/49
[2019-05-06] MEDS: BLOOD SUGAR DIAGNOSTIC STRIP TEST SCH ×4 (08:26→21:00)
[2019-05-06] MEDS ORDERED: METHYLPREDNISOLONE SOD SUCC 125 MG/2 ML VIAL IV SCH (09:00)
[2019-05-06] MEDS: METFORMIN HCL 500MG TABLET PO SCH ×3 (09:29→19:04)
[2019-05-06] MEDS: AMLODIPINE 10MG TABLET PO SCH (09:29)
[2019-05-06] MEDS: INSULIN LISPRO 100 UNITS/ML SUBCUT SCH ×4 (09:31→21:00)
[2019-05-06] MEDS ORDERED: HYDROCODONE/ACETAMINOPHEN 5/325MG TABLET PO PRN (12:00)
[2019-05-06] MEDS ORDERED: GUAIFENESIN-DM 200MG-20MG/10ML UDC PO ONE (12:00)
[2019-05-06] MEDS ORDERED: IPRATROPIUM BROMIDE (0.02%) 0.5MG/2.5ML NEB HHN SCH (12:00)
[2019-05-06 12:15] VITALS: BP 131/54
[2019-05-06] MEDS ORDERED: ALBUTEROL (0.083%) 2.5MG/3ML NEB HHN PRN (13:15)
[2019-05-06] MEDS: GUAIFENESIN-DM 200MG-20MG/10ML UDC PO PRN (14:39)
[2019-05-06] MEDS: METHYLPREDNISOLONE SOD SUCC 40 MG/ML VIAL IV SCH ×2 (14:40→21:07)
[2019-05-06 16:00] VITALS: BP 110/56
[2019-05-06] MEDS: ALBUTEROL (0.083%) 2.5MG/3ML NEB HHN SCH ×2 (16:37→20:59)
[2019-05-06 19:57] VITALS: BP 126/72
[2019-05-06] MEDS: LEVOFLOXACIN 750MG PREMIX 150 ML IV SCH (21:07)
[2019-05-06] MEDS: GABAPENTIN 300MG CAPSULE PO SCH (21:07)
[2019-05-06] MEDS: ZOLPIDEM TARTRATE 5MG TABLET PO PRN (22:51)
[2019-05-07 00:05] VITALS: BP 129/71
[2019-05-07] MEDS: ALBUTEROL (0.083%) 2.5MG/3ML NEB HHN SCH ×3 (02:00→12:55)
[2019-05-07 04:00] VITALS: BP 128/60
[2019-05-07] MEDS: METHYLPREDNISOLONE SOD SUCC 40 MG/ML VIAL IV SCH (05:47)
[2019-05-07 07:02] LABS: HEMATOCRIT. 37.4 % (36.0-48.0); HEMOGLOBIN. 11.8 g/dL (12.0-16.0); MEAN CORPUSCULAR HEMOGLOBIN 26.4 pg (28.0-32.0); MEAN CORPUSCULAR VOLUME 83.2 fL (81.0-99.0); MEAN PLATELET VOLUME 10.4 fl (7.4-10.4); PLATELET 221 x1000/uL (130-400); RED BLOOD CELL COUNT 4.49 mill/uL (4.2-5.4); RED CELL DISTRIBUTION WIDTH 13.7 % (11.6-14.6)
[2019-05-07 07:17] LABS: CHLORIDE 108 mEq/L (98-107)
[2019-05-07] MEDS: BLOOD SUGAR DIAGNOSTIC STRIP TEST SCH ×4 (08:06→21:00)
[2019-05-07] MEDS: AMLODIPINE 10MG TABLET PO SCH (08:19)
[2019-05-07] MEDS: INSULIN LISPRO 100 UNITS/ML SUBCUT SCH ×4 (08:19→21:00)
[2019-05-07] MEDS: GUAIFENESIN-DM 200MG-20MG/10ML UDC PO PRN (10:22)
[2019-05-07 10:29] LABS: PLATELET ESTIMATE NORMAL
[2019-05-07 13:00] VITALS: BP 134/72
[2019-05-07] MEDS: IPRATROPIUM BROMIDE (0.02%) 0.5MG/2.5ML NEB HHN SCH ×2 (15:58→20:25)
[2019-05-07 16:00] VITALS: BP 168/77
[2019-05-07] MEDS: METFORMIN HCL 500MG TABLET PO SCH (18:22)
[2019-05-07 20:07] VITALS: BP 154/66
[2019-05-07] MEDS ORDERED: METHYLPREDNISOLONE SOD SUCC 40 MG/ML VIAL IV SCH (21:00)
[2019-05-07] MEDS: GABAPENTIN 300MG CAPSULE PO SCH (21:04)
[2019-05-07] MEDS: GUAIFENESIN 600MG ER TABLET PO SCH (21:04)
[2019-05-07] MEDS: LEVOFLOXACIN 750MG PREMIX 150 ML IV SCH (21:05)
[2019-05-07 22:09] LABS: CLARITY URINE CLEAR (CLEAR); COLOR URINE YELLOW (YELLOW); KETONES URINE NEGATIVE (NEGATIVE); LEUKOCYTE ESTERASE URINE NEGATIVE (NEGATIVE); NITRITE URINE NEGATIVE (NEGATIVE); OCCULT BLOOD URINE NEGATIVE (NEGATIVE); PROTEIN URINE NEGATIVE (NEGATIVE); SPECIFIC GRAVITY URINE 1.031 (1.005-1.030); UROBILINOGEN URINE 0.2 E.U./dL (0.2-1.0)
[2019-05-07] MEDS: ZOLPIDEM TARTRATE 5MG TABLET PO PRN (22:26)
[2019-05-08 00:10] VITALS: BP 139/71
[2019-05-08] MEDS: IPRATROPIUM BROMIDE (0.02%) 0.5MG/2.5ML NEB HHN SCH ×5 (00:18→20:21)
[2019-05-08 04:00] VITALS: BP 137/79
[2019-05-08] MEDS: BLOOD SUGAR DIAGNOSTIC STRIP TEST SCH ×4 (07:40→21:25)
[2019-05-08 08:00] VITALS: BP 106/58
[2019-05-08] MEDS: METFORMIN HCL 500MG TABLET PO SCH ×2 (08:22→18:14)
[2019-05-08] MEDS: GUAIFENESIN 600MG ER TABLET PO SCH ×2 (08:22→21:26)
[2019-05-08] MEDS: AMLODIPINE 10MG TABLET PO SCH (08:24)
[2019-05-08] MEDS: INSULIN LISPRO 100 UNITS/ML SUBCUT SCH ×4 (08:24→21:00)
[2019-05-08] MEDS ORDERED: PREDNISONE 20MG TABLET PO SCH (09:00)
[2019-05-08] MEDS: HYDROCODONE/ACETAMINOPHEN 10/325MG TABLET PO PRN (11:33)
[2019-05-08 12:00] VITALS: BP 138/78
[2019-05-08 13:53] LABS: CHLORIDE 107 mEq/L (98-107)
[2019-05-08 13:58] LABS: BASOPHILS % 0.1 % (0.0-2.0); HEMATOCRIT. 39.1 % (36.0-48.0); HEMOGLOBIN. 12.6 g/dL (12.0-16.0); LYMPHOCYTES % 12.4 % (20.0-50.0); MEAN CORPUSCULAR HEMOGLOBIN 26.6 pg (28.0-32.0); MEAN CORPUSCULAR VOLUME 82.5 fL (81.0-99.0); MEAN PLATELET VOLUME 10.4 fl (7.4-10.4); MONOCYTES % 5.2 % (2.0-8.0); NEUTROPHILS % 82.3 % (40.0-76.0); PLATELET 250 x1000/uL (130-400); RED BLOOD CELL COUNT 4.74 mill/uL (4.2-5.4); RED CELL DISTRIBUTION WIDTH 13.5 % (11.6-14.6)
[2019-05-08] MEDS: BUDESONIDE 0.5MG/2ML NEB HHN SCH ×2 (15:59→20:20)
[2019-05-08 16:00] VITALS: BP 120/61
[2019-05-08 20:00] VITALS: BP 147/72
[2019-05-08] MEDS: LEVOFLOXACIN 750MG PREMIX 150 ML IV SCH (21:26)
[2019-05-08] MEDS: GABAPENTIN 300MG CAPSULE PO SCH (21:26)
[2019-05-09 04:00] VITALS: BP 149/73
[2019-05-09] MEDS: IPRATROPIUM BROMIDE (0.02%) 0.5MG/2.5ML NEB HHN SCH ×6 (04:00→20:38)
[2019-05-09] MEDS: BLOOD SUGAR DIAGNOSTIC STRIP TEST SCH ×4 (06:45→21:15)
[2019-05-09 08:00] VITALS: BP 127/81
[2019-05-09] MEDS: INSULIN LISPRO 100 UNITS/ML SUBCUT SCH ×4 (08:10→21:00)
[2019-05-09] MEDS: GUAIFENESIN 600MG ER TABLET PO SCH ×2 (09:34→21:00)
[2019-05-09] MEDS: PREDNISONE 20MG TABLET PO SCH (09:34)
[2019-05-09] MEDS: METFORMIN HCL 500MG TABLET PO SCH ×2 (09:34→18:45)
[2019-05-09] MEDS: AMLODIPINE 10MG TABLET PO SCH (09:34)
[2019-05-09] MEDS: BUDESONIDE 0.5MG/2ML NEB HHN SCH ×2 (11:51→20:38)
[2019-05-09 12:00] VITALS: BP 139/77
[2019-05-09 16:00] VITALS: BP 139/74
[2019-05-09 20:00] VITALS: BP 126/78
[2019-05-09 21:09] LABS: BASOPHILS % 0.1 % (0.0-2.0); HEMATOCRIT. 40.2 % (36.0-48.0); HEMOGLOBIN. 13.3 g/dL (12.0-16.0); LYMPHOCYTES % 13.2 % (20.0-50.0); MEAN CORPUSCULAR HEMOGLOBIN 27.2 pg (28.0-32.0); MEAN CORPUSCULAR VOLUME 82.6 fL (81.0-99.0); MEAN PLATELET VOLUME 10.4 fl (7.4-10.4); MONOCYTES % 6.5 % (2.0-8.0); NEUTROPHILS % 80.2 % (40.0-76.0); PLATELET 254 x1000/uL (130-400); RED BLOOD CELL COUNT 4.87 mill/uL (4.2-5.4); RED CELL DISTRIBUTION WIDTH 13.6 % (11.6-14.6)
[2019-05-09 21:11] LABS: CHLORIDE 103 mEq/L (98-107)
[2019-05-09] MEDS: LEVOFLOXACIN 750MG PREMIX 150 ML IV SCH (21:20)
[2019-05-09] MEDS: GABAPENTIN 300MG CAPSULE PO SCH (21:20)
[2019-05-09] MEDS: GUAIFENESIN-DM 200MG-20MG/10ML UDC PO PRN (22:21)
[2019-05-09] MEDS: HYDROCODONE/ACETAMINOPHEN 10/325MG TABLET PO PRN (23:42)
[2019-05-10] VITALS: BP 119/71
[2019-05-10] MEDS: IPRATROPIUM BROMIDE (0.02%) 0.5MG/2.5ML NEB HHN SCH ×4 (00:42→12:02)
[2019-05-10 04:00] VITALS: BP 122/92
[2019-05-10] MEDS: INSULIN LISPRO 100 UNITS/ML SUBCUT SCH ×2 (07:36→13:09)
[2019-05-10] MEDS: BLOOD SUGAR DIAGNOSTIC STRIP TEST SCH ×2 (07:36→12:40)
[2019-05-10] MEDS: BUDESONIDE 0.5MG/2ML NEB HHN SCH (07:53)
[2019-05-10 08:00] VITALS: BP 135/82
[2019-05-10] MEDS: GUAIFENESIN 600MG ER TABLET PO SCH (09:00)
[2019-05-10] MEDS: METFORMIN HCL 500MG TABLET PO SCH (09:08)
[2019-05-10] MEDS: AMLODIPINE 10MG TABLET PO SCH (09:08)
[2019-05-10] MEDS: PREDNISONE 20MG TABLET PO SCH (10:31)
[2019-05-10 12:00] VITALS: BP 122/92
[2019-05-10 12:21] VITALS: BP 122/92
== END 2019-05-10 13:00 | disposition home or self-care (01) | DRG 189 ==
LOC: ER 23:24 → 7WST 05-06 01:29 → EDBEDREQTM 05-06 01:39 → EDBEDREQ 05-06 01:39 → ENRESERV 05-06 01:42 → 7WST 05-07 12:58
PROVIDERS: ADMIT Family Medicine Adult Medicine; ATTEND Family Medicine Adult Medicine
DX: J96.00 Acute respiratory failure, unspecified whether with hypoxia or hypercapnia (principal); J44.1 Chronic obstructive pulmonary disease with (acute) exacerbation; J45.901 Unspecified asthma with (acute) exacerbation; E87.2 Acidosis; J44.0 Chronic obstructive pulmonary disease with (acute) lower respiratory infection; J20.9 Acute bronchitis, unspecified; E78.5 Hyperlipidemia, unspecified; I10 Essential (primary) hypertension; G89.29 Other chronic pain; M54.5 Low back pain; E11.9 Type 2 diabetes mellitus without complications; D72.829 Elevated white blood cell count, unspecified; M54.30 Sciatica, unspecified side; M48.00 Spinal stenosis, site unspecified; T38.0X5A Adverse effect of glucocorticoids and synthetic analogues, initial encounter; Y92.89 Other specified places as the place of occurrence of the external cause; Z82.5 Family history of asthma and other chronic lower respiratory diseases; Z88.0 Allergy status to penicillin; Z88.8 Allergy status to other drugs, medicaments and biological substances; Z79.899 Other long term (current) drug therapy
CPT/HCPCS: 36415; 36600; 71045; 80048; 80320; 82375; 82805; 82962; 83605; 83880; 84484; 93005; 94640; 96374; 99285; J1815; J1885; J1956; J2270; J2405; J2920; J2930; J7050; J7512; J7611; J7620; J7626; G0480

== ENCOUNTER 2023-07-16 00:25 | Emergency (ER) | payer MEDICARE, MEDICAID ==
[~2023-07-16] VITALS: Ht 188 cm; Wt 99.0 kg
[~2023-07-16 00:25] MED LIST changes: +AMLO10TA80 MT; +ASPI-1497 MT; -ATENOLOL; -GABA-531 PO; +GABA-532 PO; +KEPP500 PO; -MECL-109 PO; +MECL-159 PO; +P20 PO
[2023-07-16 00:39] VITALS: O2SAT 98
[2023-07-16 01:37] LABS: BASOPHILS % 0.9 % (0.0-2.0); EOSINOPHILS % 2.2 % (0.0-5.0); HEMATOCRIT. 39.3 % (36.0-48.0); HEMOGLOBIN. 12.3 g/dL (12.0-16.0); LYMPHOCYTES % 27.5 % (20.0-50.0); MEAN CORPUSCULAR HEMOGLOBIN 25.2 pg (28.0-32.0); MEAN CORPUSCULAR HGB CONC 31.2 g/dL (31.0-37.0); MEAN CORPUSCULAR VOLUME 80.8 fL (81.0-99.0); MEAN PLATELET VOLUME 9.7 fl (7.4-10.4); MONOCYTES % 10.1 % (2.0-8.0); NEUTROPHILS % 59.3 % (40.0-76.0); PLATELET 305 x1000/uL (130-400); RED BLOOD CELL COUNT 4.86 mill/uL (4.2-5.4); RED CELL DISTRIBUTION WIDTH 14.4 % (11.6-14.6); WHITE BLOOD COUNT 14.5 x1000/uL (4.5-11.0)
[2023-07-16 01:40] LABS: CARBON DIOXIDE 23 mEq/L (21-32); CHLORIDE 110 mEq/L (98-107); INDEX HEMOLYSI 1 (1-3); INDEX ICTERIC 1 (1-4); INDEX LIPEMIC 1 (1-3); SODIUM 138 mEq/L (136-145); UREA NITROGEN BLOOD 6 mg/dL (7-21)
[2023-07-16 01:45] LABS: CREATININE 0.7 mg/dL (0.6-1.3); GLUCOSE 137 mg/dL (70-105)
[2023-07-16] MEDS ORDERED: ACETAMINOPHEN 325MG TABLET PO STA (08:29)
[2023-07-16 10:13] LABS: HEMATOCRIT 37.2 % (36.0-48.0)
[2023-07-16] MEDS ORDERED: LORAZEPAM 0.5MG TABLET PO ONE (10:45)
[2023-07-16 11:41] VITALS: BP 135/64; PULSE 87; RESP 15; TEMP 98.3
== END 2023-07-16 11:42 | disposition home or self-care (01) ==
LOC: ER 00:25
DX: K62.5 Hemorrhage of anus and rectum (principal); I10 Essential (primary) hypertension; J44.1 Chronic obstructive pulmonary disease with (acute) exacerbation; E11.9 Type 2 diabetes mellitus without complications; Z88.0 Allergy status to penicillin; Z79.899 Other long term (current) drug therapy
CPT/HCPCS: 36415; 80048; 85014; 85018; 85025; 99283

== ENCOUNTER 2024-09-05 16:46 | Inpatient (IN) | payer MEDICARE, MEDICAID ==
[~2024-09-05] VITALS: Ht 188 cm; Wt 90.7 kg
[~2024-09-05 16:46] MED LIST changes: -AMLO10TA80 PO; -ASPI-1497 MT; +HYDR-4009 PO; -HYDR-519 PO; +HYDR50TA39 PO; +LANTUSUD SUBCUT; +LEVO750T68 MT; -MECL-159 PO; +MECL-299 PO; +METO100T16 PO; +MSCON15 PO; +OXYC-485 PO; -P20 PO
[2024-09-05 19:08] LABS: CLARITY URINE CLEAR (CLEAR); COLOR URINE YELLOW (YELLOW); GLUCOSE URINE NEGATIVE (NEGATIVE); KETONES URINE NEGATIVE (NEGATIVE); LEUKOCYTE ESTERASE URINE 1+ (NEGATIVE); NITRITE URINE NEGATIVE (NEGATIVE); OCCULT BLOOD URINE NEGATIVE (NEGATIVE); PROTEIN URINE NEGATIVE (NEGATIVE)
[2024-09-05 19:25] LABS: BACTERIA URINE 1+; RBC URINE 0-2 /hpf (0-2); SQUAMOUS EPITHELIAL CELL URINE 1+ /lpf (RARE/1+); WBC URINE 0-2 /hpf (0-2)
[2024-09-05 20:21] LABS: BASOPHILS % 0.5 % (0.0-2.0); EOSINOPHILS % 1.4 % (0.0-5.0); HEMATOCRIT. 35.6 % (36.0-48.0); HEMOGLOBIN. 11.7 g/dL (12.0-16.0); LYMPHOCYTES % 36.9 % (20.0-50.0); MEAN CORPUSCULAR HEMOGLOBIN 27.6 pg (28.0-32.0); MEAN CORPUSCULAR HGB CONC 32.8 g/dL (31.0-37.0); MEAN CORPUSCULAR VOLUME 84.3 fL (81.0-99.0); MEAN PLATELET VOLUME 9.4 fl (7.4-10.4); MONOCYTES % 10.5 % (2.0-8.0); NEUTROPHILS % 50.7 % (40.0-76.0); PLATELET 232 x1000/uL (130-400); RED BLOOD CELL COUNT 4.23 mill/uL (4.2-5.4); WHITE BLOOD COUNT 9.9 x1000/uL (4.5-11.0)
[2024-09-05 20:26] LABS: CHLORIDE 107 mEq/L (98-107); SODIUM 140 mEq/L (136-145)
[2024-09-05 20:27] LABS: CALCIUM 9.5 mg/dL (8.7-10.4); CARBON DIOXIDE 28 mEq/L (21-32)
[2024-09-05 20:29] LABS: PROTHROMBIN TIME 10.7 sec (9.6-11.0)
[2024-09-05 20:32] LABS: CREATININE 0.9 mg/dL (0.6-1.0); GLUCOSE 166 mg/dL (70-105); UREA NITROGEN BLOOD 8 mg/dL (9-23)
[2024-09-05 20:34] LABS: ALANINE AMINOTRANSFERASE 11 IU/L (10-49); ASPARTATE AMINOTRANSFERASE 12 IU/L (<34); BILIRUBIN TOTAL 0.3 mg/dL (0.1-1.0); PROTEIN TOTAL 7.3 g/dL (6.0-8.3)
[2024-09-05 20:44] LABS: BILIRUBIN DIRECT < 0.1 mg/dL (<=3.0)
[2024-09-05] MEDS ORDERED: CEFTRIAXONE 1GM/50ML 50 ML IV ONE (22:00)
[2024-09-05] MEDS: ACETAMINOPHEN 325MG TABLET PO ONE (22:15)
[2024-09-05] MEDS ORDERED: AZITHROMYCIN 500MG/250ML 250 ML IV SCH (23:00)
[2024-09-05] MEDS: LEVOFLOXACIN 750MG PREMIX 150 ML IV NR (23:17)
[2024-09-06] VITALS: BP 155/79; PULSE 83; RESP 20; TEMP 36.50292; O2SAT 98
[2024-09-06 01:06] VITALS: BP 155/79; PULSE 83; RESP 20; TEMP 36.5292
[2024-09-06] MEDS ORDERED: DEXTROSE 50% WATER 50ML SYRINGE IV PRN ×2 (01:30)
[2024-09-06] MEDS ORDERED: CLONIDINE 0.1MG TABLET PO PRN (01:30)
[2024-09-06] MEDS ORDERED: DOCUSATE SODIUM 100MG CAPSULE PO PRN (01:30)
[2024-09-06] MEDS ORDERED: MAGNESIUM/ALUMINUM HYDROXIDE/SIMETHICONE 30ML UDC PO PRN (01:30)
[2024-09-06] MEDS ORDERED: NALOXONE HCL 0.4MG/ML VIAL IV PRN (02:15)
[2024-09-06] MEDS: HYDROCODONE/ACETAMINOPHEN 5/325MG TABLET PO PRN (05:50)
[2024-09-06] MEDS: BLOOD SUGAR DIAGNOSTIC STRIP TEST SCH (07:09)
[2024-09-06 07:15] LABS: HEPATITIS B SURFACE ANTIGEN NEGATIVE (Negative)
[2024-09-06 07:36] LABS: HEPATITIS C AB NON REACTIVE (Neg) (Negative)
[2024-09-06 08:00] VITALS: BP 113/59; PULSE 68; RESP 19; TEMP 36.61404; O2SAT 98
[2024-09-06] MEDS: ENOXAPARIN 40MG/0.4ML SYR SUBCUT SCH (09:00)
[2024-09-06] MEDS: INSULIN LISPRO 100 UNITS/ML SUBCUT SCH (09:10)
[2024-09-06] MEDS: AZITHROMYCIN 500MG/250ML 250 ML IV SCH (11:16)
[2024-09-06 12:00] VITALS: BP 138/66; PULSE 68; RESP 19; TEMP 36.61404; O2SAT 98
[2024-09-06] MEDS: LEVOFLOXACIN 750MG PREMIX 150 ML IV SCH (15:17)
[2024-09-06] MEDS: HYDROCODONE/ACETAMINOPHEN 10/325MG TABLET PO PRN (15:43)
[2024-09-06 16:00] VITALS: BP 123/66; PULSE 76; RESP 19; TEMP 36.16956; O2SAT 99
[2024-09-06] MEDS: ONDANSETRON 4MG ODT PO PRN (17:02)
[2024-09-06] MEDS: MONTELUKAST SODIUM 10MG TABLET PO SCH (17:02)
[2024-09-06 20:00] VITALS: BP 133/67; PULSE 74; RESP 17; TEMP 37.16964; O2SAT 98
[2024-09-06] MEDS: LEVETIRACETAM 500MG TABLET PO SCH (23:07)
[2024-09-07] VITALS (9 sets, daily range): BP systolic 119–157; BP diastolic 60–72; PULSE 61–86; RESP 16–19; TEMP 36.114–36.61404; O2SAT 96–100
[2024-09-07] MEDS: ACETYLCYSTEINE 200MG/ML 20% VIAL 4ML INH SCH (01:17)
[2024-09-07] MEDS: IPRATROPIUM/ALBUTEROL 0.5-3(2.5)MG/3ML NEB HHN PRN (01:26)
[2024-09-07 10:25] LABS: BASOPHILS % 0.5 % (0.0-2.0); EOSINOPHILS % 1.2 % (0.0-5.0); HEMATOCRIT. 36.7 % (36.0-48.0); HEMOGLOBIN. 11.5 g/dL (12.0-16.0); LYMPHOCYTES % 58.9 % (20.0-50.0); MEAN CORPUSCULAR HEMOGLOBIN 26.5 pg (28.0-32.0); MEAN CORPUSCULAR HGB CONC 31.4 g/dL (31.0-37.0); MEAN CORPUSCULAR VOLUME 84.3 fL (81.0-99.0); MEAN PLATELET VOLUME 10.1 fl (7.4-10.4); MONOCYTES % 10.5 % (2.0-8.0); NEUTROPHILS % 28.9 % (40.0-76.0); PLATELET 247 x1000/uL (130-400); RED BLOOD CELL COUNT 4.35 mill/uL (4.2-5.4); WHITE BLOOD COUNT 10.8 x1000/uL (4.5-11.0)
[2024-09-07 10:27] LABS: CARBON DIOXIDE 25 mEq/L (21-32); CHLORIDE 108 mEq/L (98-107); POTASSIUM 4.2 mEq/L (3.5-5.1); SODIUM 142 mEq/L (136-145)
[2024-09-07 10:30] LABS: UREA NITROGEN BLOOD 5 mg/dL (9-23)
[2024-09-07 10:32] LABS: CREATININE 0.9 mg/dL (0.6-1.0)
[2024-09-07 10:33] LABS: GLUCOSE 170 mg/dL (70-105)
[2024-09-07 10:34] LABS: ALBUMIN 3.9 g/dL (3.2-4.8)
[2024-09-07 10:35] LABS: ALANINE AMINOTRANSFERASE 9 IU/L (10-49); ASPARTATE AMINOTRANSFERASE 11 IU/L (<34); BILIRUBIN TOTAL 0.3 mg/dL (0.1-1.0); PHOSPHORUS 3.4 mg/dL (2.5-4.9); PROTEIN TOTAL 7.2 g/dL (6.0-8.3)
[2024-09-07 10:36] LABS: BILIRUBIN DIRECT < 0.1 mg/dL (<=3.0); TROPONIN I HIGH SENSITIVITY < 4 ng/L (3.0-34)
[2024-09-07] MEDS ORDERED: AZIT500T8 MT (11:41)
[2024-09-07] MEDS: GUAIFENESIN/DM 600MG/30MG ER TAB 12HR PO SCH (14:26)
[2024-09-07] MEDS: ACETAMINOPHEN 325MG TABLET PO PRN (17:49)
[2024-09-08] MEDS: IPRATROPIUM/ALBUTEROL 0.5-3(2.5)MG/3ML NEB HHN SCH (00:12)
[2024-09-08 07:41] LABS: CARBON DIOXIDE 25 mEq/L (21-32); CHLORIDE 109 mEq/L (98-107); POTASSIUM 4.4 mEq/L (3.5-5.1); SODIUM 142 mEq/L (136-145)
[2024-09-08 07:42] LABS: CALCIUM 9.7 mg/dL (8.7-10.4)
[2024-09-08 07:47] LABS: GLUCOSE 194 mg/dL (70-105); UREA NITROGEN BLOOD 7 mg/dL (9-23)
[2024-09-08 08:00] VITALS: BP 142/80; PULSE 70; RESP 20; TEMP 36.3918; O2SAT 98
[2024-09-08 08:12] LABS: BASOPHILS % 0.7 % (0.0-2.0); EOSINOPHILS % 1.3 % (0.0-5.0); HEMATOCRIT. 36.1 % (36.0-48.0); HEMOGLOBIN. 11.8 g/dL (12.0-16.0); LYMPHOCYTES % 48.1 % (20.0-50.0); MEAN CORPUSCULAR HEMOGLOBIN 27.5 pg (28.0-32.0); MEAN CORPUSCULAR HGB CONC 32.6 g/dL (31.0-37.0); MEAN CORPUSCULAR VOLUME 84.6 fL (81.0-99.0); MEAN PLATELET VOLUME 10.1 fl (7.4-10.4); NEUTROPHILS % 38.9 % (40.0-76.0); PLATELET 240 x1000/uL (130-400); RED BLOOD CELL COUNT 4.27 mill/uL (4.2-5.4); RED CELL DISTRIBUTION WIDTH 14.4 % (11.6-14.6); WHITE BLOOD COUNT 9.6 x1000/uL (4.5-11.0)
[2024-09-08 09:06] VITALS: PULSE 84; RESP 18
[2024-09-08 12:00] VITALS: BP 130/73; PULSE 74; RESP 20; TEMP 36.55848; O2SAT 97
[2024-09-08 15:44] VITALS: BP 130/73; PULSE 70; TEMP 97.8; O2SAT 97
[2024-09-09] MEDS ORDERED: LEVOFLOXACIN 250MG TABLET PO SCH (11:00)
== END 2024-09-08 16:50 | DRG 193 ==
LOC: ER 16:46 → 6EST 22:37
PROVIDERS: ADMIT Family Medicine Adult Medicine; ATTEND Family Medicine Adult Medicine
DX: J18.9 Pneumonia, unspecified organism (principal); J96.00 Acute respiratory failure, unspecified whether with hypoxia or hypercapnia; J44.0 Chronic obstructive pulmonary disease with (acute) lower respiratory infection; I10 Essential (primary) hypertension; E11.9 Type 2 diabetes mellitus without complications; E78.00 Pure hypercholesterolemia, unspecified; Y95 Nosocomial condition; M54.2 Cervicalgia; Z85.048 Personal history of other malignant neoplasm of rectum, rectosigmoid junction, and anus; Z86.73 Personal history of transient ischemic attack (TIA), and cerebral infarction without residual deficits; Z88.0 Allergy status to penicillin; Z92.21 Personal history of antineoplastic chemotherapy; Z99.81 Dependence on supplemental oxygen
CPT/HCPCS: 36415; 71045; 71046; 80048; 80076; 81003; 82962; 83036; 83735; 83880; 84100; 84484; 85025; 86705; 87340; 87426; 93970; 94640; 99291; J0456; J1650; J1815; J1956; J7608; Q0162

== ENCOUNTER 2025-05-10 22:41 | Emergency (ER) | payer MEDICARE, MEDICAID ==
[~2025-05-10] VITALS: Ht 188 cm; Wt 108.0 kg
[~2025-05-10 22:41] MED LIST changes: +FAMO20TA8 PO; +GABA-1180 PO; -GABA-532 PO; -LANTUSUD SUBCUT; -LEVO750T68 MT; -METF-414 PO; +METH-773 PO; -METO100T16 PO; -OXYC-485 PO
[2025-05-10 22:47] VITALS: O2SAT 99
[2025-05-10] MEDS: ACETAMINOPHEN 325MG TABLET PO ONE (23:00)
[2025-05-10] MEDS: LIDOCAINE 5% PATCH TOP SCH (23:00)
[2025-05-11] MEDS: MORPHINE SULFATE 4 MG/ML INJ (FOR IV/IM USE) IV ONE (01:05)
[2025-05-11 01:09] LABS: BASOPHILS % 1.8 % (0.0-2.0); EOSINOPHILS % 0.9 % (0.0-5.0); HEMATOCRIT. 38.6 % (36.0-48.0); HEMOGLOBIN. 12.2 g/dL (12.0-16.0); LYMPHOCYTES % 41.6 % (20.0-50.0); MEAN CORPUSCULAR HEMOGLOBIN 26.6 pg (28.0-32.0); MEAN CORPUSCULAR HGB CONC 31.7 g/dL (31.0-37.0); MEAN PLATELET VOLUME 10.7 fl (7.4-10.4); MONOCYTES % 8.7 % (2.0-8.0); PLATELET 266 x1000/uL (130-400); RED CELL DISTRIBUTION WIDTH 13.2 % (11.6-14.6); WHITE BLOOD COUNT 10.1 x1000/uL (4.5-11.0)
[2025-05-11] MEDS: ONDANSETRON HCL 4MG/2ML INJ IV ONE (01:09)
[2025-05-11 01:13] VITALS: TEMP 36.8; O2SAT 97
[2025-05-11 01:30] LABS: CHLORIDE 104 mEq/L (98-107); SODIUM 137 mEq/L (136-145)
[2025-05-11 01:31] LABS: CALCIUM 9.5 mg/dL (8.7-10.4); CARBON DIOXIDE 20 mEq/L (21-32)
[2025-05-11 01:36] LABS: CREATININE 0.9 mg/dL (0.6-1.0); GLUCOSE 220 mg/dL (70-105); UREA NITROGEN BLOOD 6 mg/dL (9-23)
[2025-05-11 02:23] VITALS: BP 153/69; PULSE 69; RESP 13
[2025-05-11] MEDS: HYDROCODONE/ACETAMINOPHEN 10/325MG TABLET PO NR (02:23)
== END 2025-05-11 03:48 ==
LOC: ER 22:41
DX: S70.02XA Contusion of left hip, initial encounter (principal); M54.2 Cervicalgia; I10 Essential (primary) hypertension; J44.89 Other specified chronic obstructive pulmonary disease; N28.9 Disorder of kidney and ureter, unspecified; Z00.00 Encounter for general adult medical examination without abnormal findings; Z88.0 Allergy status to penicillin; Z79.899 Other long term (current) drug therapy; Z98.890 Other specified postprocedural states; Z86.59 Personal history of other mental and behavioral disorders; W05.0XXA Fall from non-moving wheelchair, initial encounter; Y93.89 Activity, other specified; Y92.89 Other specified places as the place of occurrence of the external cause; Y99.8 Other external cause status
CPT/HCPCS: 99285; 70450; 36415; 73502; 73552; 72125; 96374; 96375; 80048; 85025; J2270; J2405

== ENCOUNTER 2025-06-14 21:43 | Emergency (ER) | payer MEDICARE, MEDICAID ==
[~2025-06-14] VITALS: Ht 188 cm; Wt 106.0 kg
[2025-06-14 21:57] VITALS: O2SAT 97
[2025-06-14] MEDS: ACETAMINOPHEN 325MG TABLET PO ONE (22:45)
[2025-06-15 00:11] LABS: BASOPHILS % 1.6 % (0.0-2.0); EOSINOPHILS % 0.6 % (0.0-5.0); HEMATOCRIT. 35.3 % (36.0-48.0); HEMOGLOBIN. 11.5 g/dL (12.0-16.0); LYMPHOCYTES % 32.4 % (20.0-50.0); MEAN PLATELET VOLUME 10.7 fl (7.4-10.4); MONOCYTES % 9.5 % (2.0-8.0); NEUTROPHILS % 55.9 % (40.0-76.0); PLATELET 227 x1000/uL (130-400); RED BLOOD CELL COUNT 4.24 mill/uL (4.2-5.4); RED CELL DISTRIBUTION WIDTH 13.4 % (11.6-14.6)
[2025-06-15 00:23] LABS: CREATININE 1.0 mg/dL (0.6-1.0); UREA NITROGEN BLOOD 12 mg/dL (9-23)
[2025-06-15] MEDS: MORPHINE SULFATE 4 MG/ML INJ (FOR IV/IM USE) IV ONE (01:15)
[2025-06-15] MEDS ORDERED: TOPUD MT (01:49)
[2025-06-15 03:11] VITALS: BP 139/84; PULSE 70; RESP 12; TEMP 37.4; O2SAT 99
== END 2025-06-15 06:03 ==
LOC: ER 21:43
DX: M79.632 Pain in left forearm (principal); I10 Essential (primary) hypertension; N28.9 Disorder of kidney and ureter, unspecified; J44.89 Other specified chronic obstructive pulmonary disease; E11.9 Type 2 diabetes mellitus without complications; Z00.00 Encounter for general adult medical examination without abnormal findings; Z88.0 Allergy status to penicillin; Z79.899 Other long term (current) drug therapy; Z98.890 Other specified postprocedural states; Z86.59 Personal history of other mental and behavioral disorders
CPT/HCPCS: 99285; 80048; 85025; 36415; 73090; 96374; 93971; J2270

== ENCOUNTER 2025-07-05 10:22 | Emergency (ER) | payer MEDICARE, MEDICAID ==
[~2025-07-05] VITALS: Ht 185.4 cm; Wt 112.0 kg
[~2025-07-05 10:22] MED LIST changes: +TOPUD MT
[2025-07-05] MEDS ORDERED: FAMOTIDINE 20MG/2ML VIAL IV ONE (10:45)
[2025-07-05] MEDS ORDERED: DIPHENHYDRAMINE 50MG/ML VIAL IV ONE (10:45)
[2025-07-05] MEDS ORDERED: METHYLPREDNISOLONE SOD SUCC 125MG/2ML (ACT-O-VIAL) IV ONE (10:45)
[2025-07-05 11:52] VITALS: PULSE 88; RESP 18; O2SAT 97
[2025-07-05] MEDS: IPRATROPIUM/ALBUTEROL 0.5-3(2.5)MG/3ML NEB HHN ONE (11:52)
[2025-07-05] MEDS: DIPHENHYDRAMINE 25MG CAPSULE PO ONE (12:19)
[2025-07-05] MEDS: PREDNISONE 20MG TABLET PO ONE (12:19)
[2025-07-05] MEDS: FAMOTIDINE 20MG TABLET PO ONE (12:19)
[2025-07-05] MEDS: HYDROCODONE/ACETAMINOPHEN 5/325MG TABLET PO ONE ×2 (12:56→12:57)
[2025-07-05] MEDS ORDERED: FAMO-135 MT (12:58)
[2025-07-05] MEDS ORDERED: P50 MT (12:58)
[2025-07-05] MEDS: LEVETIRACETAM 500MG TABLET PO ONE (12:58)
[2025-07-05] MEDS ORDERED: DIPH25CA83 MT (12:58)
[2025-07-05 13:20] LABS: BASOPHILS % 0.2 % (0.0-2.0); EOSINOPHILS % 0.1 % (0.0-5.0); HEMATOCRIT. 39.4 % (36.0-48.0); HEMOGLOBIN. 12.3 g/dL (12.0-16.0); LYMPHOCYTES % 24.5 % (20.0-50.0); MEAN PLATELET VOLUME 9.7 fl (7.4-10.4); MONOCYTES % 5.6 % (2.0-8.0); NEUTROPHILS % 69.6 % (40.0-76.0); PLATELET 324 x1000/uL (130-400); RED BLOOD CELL COUNT 4.67 mill/uL (4.2-5.4); RED CELL DISTRIBUTION WIDTH 13.5 % (11.6-14.6)
[2025-07-05 13:33] LABS: INR 1.0
[2025-07-05 13:36] LABS: CREATININE 1.0 mg/dL (0.6-1.0); UREA NITROGEN BLOOD 12 mg/dL (9-23)
[2025-07-05 13:38] LABS: ASPARTATE AMINOTRANSFERASE 19 IU/L (<34); BILIRUBIN DIRECT 0.2 mg/dL (<=3.0); TROPONIN I HIGH SENSITIVITY 7 ng/L (3.0-34)
[2025-07-05 13:39] LABS: BILIRUBIN TOTAL 0.6 mg/dL (0.1-1.0); PROTEIN TOTAL 8.1 g/dL (6.0-8.3)
[2025-07-05 17:47] VITALS: BP 142/63; PULSE 73; RESP 14; TEMP 36.7; O2SAT 98
== END 2025-07-05 20:07 | disposition home or self-care (01) ==
LOC: ER 10:28
DX: T78.40XA Allergy, unspecified, initial encounter (principal); J44.1 Chronic obstructive pulmonary disease with (acute) exacerbation; I10 Essential (primary) hypertension; E11.9 Type 2 diabetes mellitus without complications; Z79.899 Other long term (current) drug therapy; Z98.890 Other specified postprocedural states; Z88.0 Allergy status to penicillin; X58.XXXA Exposure to other specified factors, initial encounter
CPT/HCPCS: 99285; 71045; 80076; 80048; 83880; 83735; 85025; 85610; 85730; 84484; 36415; 94640; Q0163; J7512; 94070; 94664; 98960

== ENCOUNTER 2025-09-17 22:36 | Emergency (ER) | payer MEDICARE, MEDICAID ==
[~2025-09-17] VITALS: Ht 188 cm; Wt 111.0 kg
[~2025-09-17 22:36] MED LIST changes: +DIPH25CA83 MT; +FAMO-135 MT; +P50 MT
[2025-09-17 22:44] VITALS: TEMP 36.8; O2SAT 97
[2025-09-18] MEDS: ONDANSETRON HCL 4MG/2ML INJ IV ONE (00:16)
[2025-09-18] MEDS: SODIUM CHLORIDE 0.9% 1,000 ML IV ONE (00:16)
[2025-09-18] MEDS: MORPHINE SULFATE 4 MG/ML INJ (FOR IV/IM USE) IV ONE (00:26)
[2025-09-18 01:09] LABS: CREATININE 0.9 mg/dL (0.6-1.0); UREA NITROGEN BLOOD 9 mg/dL (9-23)
[2025-09-18 01:10] LABS: TROPONIN I HIGH SENSITIVITY < 4 ng/L (3.0-34)
[2025-09-18 01:11] LABS: ASPARTATE AMINOTRANSFERASE 14 IU/L (<34); BILIRUBIN DIRECT < 0.1 mg/dL (<=3.0); BILIRUBIN TOTAL 0.2 mg/dL (0.1-1.0); PROTEIN TOTAL 7.7 g/dL (6.0-8.3)
[2025-09-18 02:07] LABS: INR 0.9
[2025-09-18 02:11] LABS: BASOPHILS % 0.3 % (0.0-2.0); EOSINOPHILS % 0.7 % (0.0-5.0); HEMATOCRIT. 37.4 % (36.0-48.0); HEMOGLOBIN. 11.7 g/dL (12.0-16.0); LYMPHOCYTES % 36.0 % (20.0-50.0); MEAN PLATELET VOLUME 10.6 fl (7.4-10.4); MONOCYTES % 11.6 % (2.0-8.0); NEUTROPHILS % 51.4 % (40.0-76.0); PLATELET 265 x1000/uL (130-400); RED BLOOD CELL COUNT 4.45 mill/uL (4.2-5.4); RED CELL DISTRIBUTION WIDTH 13.6 % (11.6-14.6)
[2025-09-18 03:20] VITALS: BP 118/68; PULSE 67; RESP 19; O2SAT 99
== END 2025-09-18 03:22 ==
LOC: ER 22:36 → CMPBEDREQ 09-18 07:23
DX: R53.1 Weakness (principal); M79.604 Pain in right leg; E11.9 Type 2 diabetes mellitus without complications; E78.00 Pure hypercholesterolemia, unspecified; G40.909 Epilepsy, unspecified, not intractable, without status epilepticus; I10 Essential (primary) hypertension; R06.02 Shortness of breath; J44.89 Other specified chronic obstructive pulmonary disease; Z79.51 Long term (current) use of inhaled steroids; Z88.0 Allergy status to penicillin; Z79.899 Other long term (current) drug therapy
CPT/HCPCS: 99285; 71045; 36415; 93005; 93970; 96374; 96361; 80076; 80048; 83880; 85025; 85610; 85730; 84484; J2405; J7030